=== PATIENT | male | born 1935 | race Caucasian/White ===

== ENCOUNTER 2016-03-15 12:22 | Observation (INO) | payer OTHER ==
[~2016-03-15] VITALS: Ht 180.3 cm; Wt 103.5 kg
[~2016-03-15 12:22] MED LIST: BUMETANIDE1 MG PO; CIALIS5 MG PO; CLEOCIN300 MG PO; DIGOXIN125 MCG PO; DIGOXIN250 MCG PO; DOXAZOSIN MESYLA4 MG PO; IRBESARTAN300 MG PO; K-DUR20 MEQ PO; LASIX40 MG PO; LISINOPRIL20 MG PO; METOLAZONE5 MG PO; MULTI-VITAMIN1 EAC4 PO; PERCOCET 5/31 TABLET PO; PINDOLOL5 MG PO; PRADAXA150 MG PO; QUESTRAN PACKET4 GM PO; TYLENOL ARTHRI650 MG PO; WARFARIN SODIUM5 MG PO; ZESTORETIC 20-1 EAC1 PO; digoxin PO
[2016-03-15 13:18] LABS: HEMATOCRIT 34.8 % (38.0-50.0); MCH 25.6 PG (29.0-34.0); MCHC 32.5 G/DL (30.0-36.0); MCV 78.7 FL (86-99); MEAN PLAT.VOLUME 9.7 uM^3 (9.0-12.4); PLATELET COUNT 153 K/uL (156-360); RBC DIS.WIDTH-CV 16.3 % (11.8-14.6); RBC DIS.WIDTH-SD 47.4 % (39-53); RED BLOOD COUNT 4.42 M/uL (4.00-5.50)
[2016-03-15 13:24] LABS: INTER. NORMALIZED RATIO 1.4; PROTHROMBIN TIME 14.7 (9.2-11.2); PTT 36.1 (25-32)
[2016-03-15 13:25] LABS: AMYLASE 49 IU/L (1-118)
[2016-03-15 13:26] LABS: CHLORIDE 93 mEq/L (99-109); POTASSIUM 3.1 mEq/L (3.7-5.4); SODIUM 137 mEq/L (136-147)
[2016-03-15 13:27] LABS: GLUCOSE 104 mg/dL (70-99)
[2016-03-15 13:29] LABS: ANION GAP 13 MEQ/L (2-14)
[2016-03-15 13:31] LABS: GFR ESTIMATE (CALCULATED) 33 mL/min/
[2016-03-15 13:32] LABS: UREA NITROGEN (BUN) 44 mg/dL (9-23)
[2016-03-15 13:35] LABS: TROP-I INTERPRETATION NEGATIVE; TROPONIN-I 0.14 ng/mL (0.0-0.30)
[2016-03-15 13:38] LABS: LIPASE 35 U/L (1.0-51.0)
[2016-03-15 13:47] LABS: ALKALINE PHOSPHATASE 39 IU/L (3-129)
[2016-03-15 13:49] LABS: DIRECT BILIRUBIN 0.6 mg/dL (0.0-0.3)
[2016-03-15 15:54] LABS: ADD MIUA? NO; BILIRUBIN NEGATIVE; BLOOD NEGATIVE; COLOR YELLOW ((YELLOW)); GLUCOSE (STRIP) NEGATIVE; KETONES NEGATIVE; LEUKOCYTES NEGATIVE; NITRITE NEGATIVE; PROTEIN (STRIP) NEGATIVE; SPECIFIC GRAVITY 1.006 (1.000-1.030); UCUL ADDED? NO; UROBILINOGEN 0.2 MG/DL (0.2-1.0)
[2016-03-15 16:14] LABS: AMPHETAMINE NEGATIVE (500 ng/mL); BARBITURATES NEGATIVE (200 ng/mL); BENZODIAZEPINES NEGATIVE (150 ng/mL); COCAINE NEGATIVE (150 ng/mL); INTERNAL CONTROLS VALID? YES; METHADONE NEGATIVE (200 ng/mL); METHAMPHETAMINE NEGATIVE (500 ng/mL); OPIATES (MORPHINE) NEGATIVE (100 ng/mL); OXYCODONE NEGATIVE (100 ng/mL); PHENCYCLIDINE NEGATIVE (25 ng/mL); PROPOXYPHENE NEGATIVE (300 ng/mL); THC CANNABINOIDS NEGATIVE (50 ng/mL); TRICYCLIC ANTIDEPRESSANTS NEGATIVE (300 ng/mL)
[2016-03-15] MEDS ORDERED: ATORVASTATIN CA40 MG PO (17:36)
[2016-03-15] MEDS ORDERED: CARDURA2 M1 PO (17:37)
[2016-03-15 18:19] LABS: TROP-I INTERPRETATION NEGATIVE; TROPONIN-I 0.11 ng/mL (0.0-0.30)
[2016-03-15 18:49] LABS: IRON 20 MCG/DL (35-150)
[2016-03-15 19:08] LABS: FERRITIN 59 NG/ML (22-322)
[2016-03-15 19:42] VITALS: BP 147/64
[2016-03-15 20:25] LABS: Estimated Average Glucose 120 mg/dL (70-123); HEMOGLOBIN A1c (GLYCOHEMOGLOB) 5.8 % HGB (Below 5.7)
[2016-03-15 23:21] VITALS: BP 155/72
[2016-03-16 04:25] VITALS: BP 127/60
[2016-03-16 06:25] LABS: INTER. NORMALIZED RATIO 1.5; PROTHROMBIN TIME 15.1 (9.2-11.2)
[2016-03-16 06:34] LABS: ANION GAP 11 MEQ/L (2-14); CHLORIDE 95 MEQ/L (99-109); GFR ESTIMATE (CALCULATED) 39 mL/min/; GLUCOSE 87 mg/dL (70-99); HDL CHOLESTEROL 42 MG/DL (Desirable>=40); LDL CHOLESTEROL 68 mg/dL (Desirable<100); NON-HDL CHOLESTEROL 79 mg/dL (Desirable<160); POTASSIUM 3.3 MEQ/L (3.7-5.4); SAMPLE HEMOLYSIS CHECK 0; SAMPLE ICTERIC CHECK 0; SAMPLE LIPEMIA CHECK 0; SODIUM 139 MEQ/L (136-147); TOTAL CHOLESTEROL 121 mg/dL (Desirable<200); TRIGLYCERIDES 55 MG/DL (Normal: <150); UREA NITROGEN (BUN) 41 mg/dL (9-23)
[2016-03-16 07:40] VITALS: BP 133/69
[2016-03-16 08:31] LABS: MAGNESIUM 1.5 mg/dl (1.3-2.7)
[2016-03-16 09:51] LABS: DIGOXIN 0.6 ng/mL (0.8-2.0)
[2016-03-16 11:46] VITALS: BP 133/69
[2016-03-16] MEDS ORDERED: BUMETANIDE1 MG PO (15:10)
[2016-03-16 15:39] VITALS: BP 148/70
== END 2016-03-16 18:03 | disposition home or self-care (01) ==
LOC: EME 12:22 → EDOF 17:06 → 5WEST 17:06
PROVIDERS: Emergency Medicine; Internal Medicine
DX: R47.81 Slurred speech (principal); R29.810 Facial weakness; R00.1 Bradycardia, unspecified; I95.9 Hypotension, unspecified; I48.2 Chronic atrial fibrillation; Z79.01 Long term (current) use of anticoagulants; D64.9 Anemia, unspecified; E87.6 Hypokalemia; R79.1 Abnormal coagulation profile; E78.5 Hyperlipidemia, unspecified; I71.4 Abdominal aortic aneurysm, without rupture; Z87.891 Personal history of nicotine dependence; Z82.49 Family history of ischemic heart disease and other diseases of the circulatory system; Z82.61 Family history of arthritis
CPT/HCPCS: 70450; 70551; 71020; 80048; 80061; 80076; 80162; 81003; 82150; 82607; 82728; 82746; 83036; 83540; 83690; 83735; 84443; 84466; 84484; 85027; 85610; 85730; 93005; 93880; 99281; 99285; G0378; J1650; J3475

== ENCOUNTER 2016-11-11 08:46 | Day surgery (SDC) | payer OTHER ==
[~2016-11-11] VITALS: Ht 181.6 cm; Wt 111.1 kg
[~2016-11-11 08:46] MED LIST changes: +ADVAIR 250/501 DISK IH; +ATORVASTATIN CA40 MG PO; +AVAPRO300 MG PO; +BUMEX2 MG PO; +CARDURA2 M1 PO; +CENTRUM MEN'S1 EACH PO; +ELIQUIS2.5 MG PO; -MULTI-VITAMIN1 EAC4 PO; +SILDENAFIL20 MG PO; +TAZTIA XT120 M1 PO
[2016-11-11] MEDS ORDERED: ELIQUIS2.5 MG PO (09:29)
[2016-11-11 09:36] VITALS: BP 175/82
[2016-11-11 10:02] LABS: EOSINOPHIL (%) 1.9 % (0-5); EOSINOPHIL COUNT 0.1 K/uL (0-0.3); HEMATOCRIT 38.3 % (38.0-50.0); IMMATURE GRANULOCYTE (%) 0.3 % (0.0-0.7); INSTRUMENT ABS NEUTROPHIL CT 4.2 K/uL; MCH 29.2 PG (29.0-34.0); MCHC 33.2 G/DL (30.0-36.0); MEAN PLAT.VOLUME 9.7 uM^3 (9.0-12.4); MONOCYTE (%) 10.2 % (3-12); MONOCYTE COUNT 0.6 K/uL (0-0.8); NEUTROPHIL (%) 70.3 % (45-76); NEUTROPHIL COUNT 4.2 K/uL (1.8-6.4); PLATELET COUNT 172 K/uL (156-360); RBC DIS.WIDTH-CV 14.7 % (11.8-14.6); RBC DIS.WIDTH-SD 47.6 % (39-53); RED BLOOD COUNT 4.35 M/uL (4.00-5.50); WHITE BLOOD COUNT 5.9 K/uL (4.1-10.2)
[2016-11-11 10:07] LABS: INTER. NORMALIZED RATIO 1.1; PROTHROMBIN TIME 12.1 SEC (10.2-12.9)
[2016-11-11 10:23] LABS: ALKALINE PHOSPHATASE 49 IU/L (3-129); ANION GAP 7 MEQ/L (2-14); CHLORIDE 104 MEQ/L (99-109); GFR ESTIMATE (CALCULATED) > 59 mL/min/; GLUCOSE 107 mg/dL (70-99); POTASSIUM 4.5 MEQ/L (3.7-5.4); SAMPLE HEMOLYSIS CHECK 0; SAMPLE ICTERIC CHECK 0; SAMPLE LIPEMIA CHECK 0; SODIUM 140 MEQ/L (136-147); TOTAL BILIRUBIN 1.1 MG/DL (0.0-1.0); UREA NITROGEN (BUN) 25 mg/dL (9-23)
[2016-11-11] MEDS ORDERED: HYDROCODON-ACE1 EAC7 PO (13:34)
[2016-11-11] MEDS ORDERED: COLACE100 MG PO (13:34)
[2016-11-11 14:45] VITALS: BP 156/72
[2016-11-11 15:45] VITALS: BP 158/72
[2016-11-11 17:45] VITALS: BP 169/76
== END 2016-11-11 17:57 | disposition home or self-care (01) ==
LOC: SDC 08:46
PROVIDERS: Thoracic Surgery (Cardiothoracic Vascular Surgery)
PROC: 0WUF0JZ Supplement Abdominal Wall with Synthetic Substitute, Open Approach (ICD-10-PCS; principal; 2016-11-11)
DX: K42.0 Umbilical hernia with obstruction, without gangrene (principal); I12.9 Hypertensive chronic kidney disease with stage 1 through stage 4 chronic kidney disease, or unspecified chronic kidney disease; N18.3 Chronic kidney disease, stage 3 (moderate); E78.5 Hyperlipidemia, unspecified; I27.20 Pulmonary hypertension, unspecified; E66.01 Morbid (severe) obesity due to excess calories; Z68.33 Body mass index [BMI] 33.0-33.9, adult; J44.9 Chronic obstructive pulmonary disease, unspecified; G47.33 Obstructive sleep apnea (adult) (pediatric); I48.2 Chronic atrial fibrillation; Z86.73 Personal history of transient ischemic attack (TIA), and cerebral infarction without residual deficits
CPT/HCPCS: 80053; 85025; 85610; C1781; J0330; J0690; J0696; J1100; J2250; J2405; J2710; J3010; J7050

== ENCOUNTER 2017-07-19 18:16 | Inpatient (IN) | payer OTHER ==
[~2017-07-19] VITALS: Ht 185.4 cm; Wt 115.0 kg
[~2017-07-19 18:16] MED LIST changes: -CARDURA2 M1 PO; +CARDURA4 MG PO; +COLACE100 MG PO; +HYDROCODON-ACE1 EAC7 PO
[2017-07-19 18:59] LABS: HEMATOCRIT 32.8 % (38.0-50.0); HEMOGLOBIN 10.8 G/DL (12.5-16.6); MCH 28.7 PG (29.0-34.0); MCHC 32.9 G/DL (30.0-36.0); MCV 87.2 FL (86-99); PLATELET COUNT 151 K/uL (156-360); RBC DIS.WIDTH-CV 14.8 % (11.8-14.6); RBC DIS.WIDTH-SD 47.8 % (39-53); RED BLOOD COUNT 3.76 M/uL (4.00-5.50); WHITE BLOOD COUNT 9.2 K/uL (4.1-10.2)
[2017-07-19 19:10] LABS: CHLORIDE 99 mEq/L (99-109); POTASSIUM 4.7 mEq/L (3.7-5.4); SODIUM 137 mEq/L (136-147)
[2017-07-19 19:12] LABS: GLUCOSE 145 mg/dL (70-99)
[2017-07-19 19:16] LABS: CREATININE 2.5 mg/dL (0.6-1.3); GFR ESTIMATE (CALCULATED) 26 mL/min/ (58.99-99999)
[2017-07-19 19:17] LABS: UREA NITROGEN (BUN) 40 mg/dL (9-23)
[2017-07-19] MEDS ORDERED: BUMEX2 MG PO (19:44)
[2017-07-19] MEDS ORDERED: DELTASONE20 M1 PO (19:44)
[2017-07-19] MEDS ORDERED: INCRUSE ELLI62.5 MCG IH (19:44)
[2017-07-19] MEDS ORDERED: PROAIR HFA8.5 GM IH (19:45)
[2017-07-19] MEDS ORDERED: BYSTOLIC5 MG PO (19:45)
[2017-07-19 19:53] LABS: INTER. NORMALIZED RATIO 1.4
[2017-07-19 19:56] LABS: PTT 29.5 SEC (25-37)
[2017-07-19 22:48] LABS: BASOPHIL (%) 0.1 % (0-1); EOSINOPHIL (%) 0 % (0-5); HEMATOCRIT 33.1 % (38.0-50.0); HEMOGLOBIN 11.1 G/DL (12.5-16.6); IMMATURE GRANULOCYTE (%) 0.4 % (0.0-0.7); LYMPHOCYTE (%) 6.3 % (15-42); LYMPHOCYTE COUNT 0.6 K/uL (1.0-2.8); MCH 29.1 PG (29.0-34.0); MCHC 33.5 G/DL (30.0-36.0); MCV 86.9 FL (86-99); MONOCYTE (%) 6.6 % (3-12); MONOCYTE COUNT 0.6 K/uL (0-0.8); NEUTROPHIL (%) 86.6 % (45-76); NEUTROPHIL COUNT 7.9 K/uL (1.8-6.4); PLATELET COUNT 157 K/uL (156-360); RBC DIS.WIDTH-CV 14.8 % (11.8-14.6); RBC DIS.WIDTH-SD 47.1 % (39-53); RED BLOOD COUNT 3.81 M/uL (4.00-5.50); WHITE BLOOD COUNT 9.2 K/uL (4.1-10.2)
[2017-07-19 23:28] LABS: ALBUMIN 3.9 G/DL (3.2-4.8); ALKALINE PHOSPHATASE 40 IU/L (3-129); ALT (GPT) 13 IU/L (3-49); AST (GOT) 17 IU/L (2-34); CHLORIDE 98 MEQ/L (99-109); CREATININE 2.2 MG/DL (0.6-1.3); GFR ESTIMATE (CALCULATED) 31 mL/min/ (58.99-99999); GLUCOSE 141 mg/dL (70-99); HDL CHOLESTEROL 44 MG/DL (Desirable>=40); LDL CHOLESTEROL 53 mg/dL (Desirable<100); NON-HDL CHOLESTEROL 64 mg/dL (Desirable<160); POTASSIUM 3.8 MEQ/L (3.7-5.4); SODIUM 135 MEQ/L (136-147); TOTAL BILIRUBIN 0.8 MG/DL (0.0-1.0); TOTAL CHOLESTEROL 108 mg/dL (Desirable<200); TOTAL PROTEIN 6.4 G/DL (6.4-8.3); TRIGLYCERIDES 53 MG/DL (Normal: <150); UREA NITROGEN (BUN) 39 mg/dL (9-23)
[2017-07-20] VITALS (9 sets, daily range): BP systolic 126–159; BP diastolic 63–72
[2017-07-20 08:46] LABS: PROSTATIC SPEC. AG. 1.7 nG/mL (0-4.0)
[2017-07-20 08:49] LABS: THYROTROPIN (TSH) 1.4 MIU/L (0.4-5.5)
[2017-07-20 12:57] LABS: HEMOGLOBIN A1c (GLYCOHEMOGLOB) 5.7 % (Below 5.7)
[2017-07-21 03:58] VITALS: BP 143/67
[2017-07-21 06:37] LABS: BASOPHIL (%) 0.3 % (0-1); EOSINOPHIL (%) 1.9 % (0-5); EOSINOPHIL COUNT 0.1 K/uL (0-0.3); HEMATOCRIT 34.7 % (38.0-50.0); HEMOGLOBIN 11.1 G/DL (12.5-16.6); IMMATURE GRANULOCYTE (%) 0.3 % (0.0-0.7); LYMPHOCYTE (%) 12.4 % (15-42); LYMPHOCYTE COUNT 0.8 K/uL (1.0-2.8); MCH 28.2 PG (29.0-34.0); MCV 88.1 FL (86-99); MONOCYTE (%) 10.7 % (3-12); MONOCYTE COUNT 0.7 K/uL (0-0.8); NEUTROPHIL (%) 74.4 % (45-76); NEUTROPHIL COUNT 4.8 K/uL (1.8-6.4); PLATELET COUNT 157 K/uL (156-360); RBC DIS.WIDTH-CV 14.9 % (11.8-14.6); RBC DIS.WIDTH-SD 48.2 % (39-53); RED BLOOD COUNT 3.94 M/uL (4.00-5.50); WHITE BLOOD COUNT 6.5 K/uL (4.1-10.2)
[2017-07-21 07:06] LABS: CHLORIDE 100 MEQ/L (99-109); CREATININE 1.8 MG/DL (0.6-1.3); GFR ESTIMATE (CALCULATED) 39 mL/min/ (58.99-99999); MAGNESIUM 1.9 mg/dl (1.3-2.7); PHOSPHORUS 3.1 mg/dL (2.5-4.9); POTASSIUM 3.7 MEQ/L (3.7-5.4); UREA NITROGEN (BUN) 35 mg/dL (9-23)
[2017-07-21 07:07] LABS: GLUCOSE 101 mg/dL (70-99); SODIUM 142 MEQ/L (136-147)
[2017-07-21 07:42] VITALS: BP 147/68
[2017-07-21 12:14] VITALS: BP 152/69
[2017-07-21 16:02] VITALS: BP 147/67
== END 2017-07-21 17:35 | disposition home or self-care (01) | DRG 292 ==
LOC: EME 18:16 → 3EAST 22:33 → EDOF 22:33 → ENRESERV 22:39 → 3EAST 07-20 00:26
PROVIDERS: Emergency Medicine; Family Medicine; Internal Medicine Nephrology
DX: I13.0 Hypertensive heart and chronic kidney disease with heart failure and stage 1 through stage 4 chronic kidney disease, or unspecified chronic kidney disease (principal); I50.9 Heart failure, unspecified; N18.3 Chronic kidney disease, stage 3 (moderate); N17.9 Acute kidney failure, unspecified; E11.22 Type 2 diabetes mellitus with diabetic chronic kidney disease; I27.29 Other secondary pulmonary hypertension; I27.81 Cor pulmonale (chronic); D69.6 Thrombocytopenia, unspecified; T46.5X5A Adverse effect of other antihypertensive drugs, initial encounter; T50.1X5A Adverse effect of loop [high-ceiling] diuretics, initial encounter; I48.2 Chronic atrial fibrillation; D64.9 Anemia, unspecified; E78.5 Hyperlipidemia, unspecified; Z86.73 Personal history of transient ischemic attack (TIA), and cerebral infarction without residual deficits; Z87.891 Personal history of nicotine dependence; Z79.01 Long term (current) use of anticoagulants
CPT/HCPCS: 71046; 71250; 74176; 80048; 80053; 80061; 82948; 83036; 83735; 83880; 84100; 84153; 84154 GA; 84443; 85025; 85027; 85610; 85730; 93005; 93306; 94640; 94640 76; 99202; 99281; 99285; J1940